=== PATIENT | female | born 1945 | race Caucasian/White ===

== ENCOUNTER 2021-09-08 15:57 | Emergency (ER) | payer OTHER ==
[~2021-09-08 15:57] MED LIST: ALLEGRA ALLERG180 MG PO; CALCIUM 1,0001 EACH PO; ETODOLAC300 MG PO; FISH OIL 1,2001 EAC2 PO; GLUCOSAMINE1000 MG PO; HCTZ25 MG PO; MSM500 MG PO; NASONEX NAS120 PUFFS; NEURONTIN100 MG PO; POTASSIUM GLUC500 MG PO; PROGESTERONE100 MG PO; STOOL SOFTENER100 MG PO; VITAMIN B-121000 MC1 PO; XARELTO10 MG PO
[2021-09-08 16:48] LABS: BASOPHIL 0.9 % (0-2); EOSINOPHIL 1.7 % (0-7); HCT 46.1 % (37.0-47.0); HGB 15.9 g/dl (12.5-16.0); MCHC 34.5 g/dL (32.0-36.0); MONOCYTE 10.3 % (0-12); MPV 9.9 fL (6.0-9.5); NEUTROPHIL 60.7 % (41-80); NRBC 0; PLT 341 K/uL (150-400); RDW 13.9 % (11.5-14.0); WBC 7.5 K/uL (4.0-10.5)
[2021-09-08 16:51] LABS: BILIRUBIN NEGATIVE (NEGATIVE); BLOOD TRACE-INTACT Ery/uL (NEGATIVE); CLARITY CLEAR (CLEAR); COLOR YELLOW (YELLOW); GLUCOSE (U) NORMAL (NORMAL); LEUKOCYTES NEGATIVE Leu/uL (NEGATIVE); NITRITE NEGATIVE (NEGATIVE); PROTEIN NEGATIVE (NEGATIVE); SPECIFIC GRAVITY <=1.005 (1.001-1.030); UROBILINOGEN 0.2 mg/dL (0.2-1.0); pH 5.5 (5.0-9.0)
[2021-09-08 16:59] LABS: BACTERIA TRACE; SQUAMOUS EPITHELIAL CELLS RARE; URINARY RBC RARE
[2021-09-08 17:14] LABS: BILIRUBIN - TOTAL 0.4 mg/dL (0.2-1.0); BUN/CREAT RATIO (CALC) 11.5 RATIO; CREATININE 0.87 mg/dL (0.51-0.95); GLOBULIN (CALCULATION) 4.3 g/dL; POTASSIUM 3.1 mmol/L (3.5-5.1); TOTAL PROTEIN 8.3 g/dL (6.4-8.2)
[2021-09-08 17:23] LABS: CORONAVIRUS 2019 SARS-COV-2 NEGATIVE (NEGATIVE); INFLUENZA A NAA NEGATIVE (NEGATIVE)
[2021-09-08 17:26] LABS: LACTIC ACID 0.7 mmol/L (0.4-1.9)
[2021-09-08] MEDS ORDERED: K-TAB ER20 MEQ PO (19:33)
[2021-09-08] MEDS ORDERED: PREDNISONE 20MG20 MG PO (19:33)
[2021-09-08] MEDS ORDERED: PROAIR HFA8.5 GM INH (19:33)
[2021-09-08] MEDS ORDERED: AZITHROMYCIN250 MG PO (19:33)
== END 2021-09-08 19:47 | disposition home or self-care (01) ==
LOC: FER 15:57
PROVIDERS: Nurse Practitioner Family
DX: J18.9 Pneumonia, unspecified organism (principal); E87.6 Hypokalemia; I10 Essential (primary) hypertension; Z20.822 Contact with and (suspected) exposure to COVID-19; Z88.5 Allergy status to narcotic agent; Z79.899 Other long term (current) drug therapy
CPT/HCPCS: 36415; 71045; 71250; 80053; 81001; 83605; 84145; 84484; 85025; 85379; 87040; 93005; J2930; U0002